=== PATIENT | female | born 1965 | race Caucasian/White ===

== ENCOUNTER 2018-02-18 07:23 | Inpatient (IN) ==
[2018-02-18] MEDS ORDERED: ONDANSETRON 4 MG/2 ML VIAL IV STA (07:42)
[2018-02-18] MEDS ORDERED: SODIUM CHLORIDE 0.9% 1,000 ML IV STA ×2 (07:42→09:12)
[2018-02-18] MEDS ORDERED: ACETAMINOPHEN 500 MG TABLET PO STA (07:57)
[2018-02-18] MEDS ORDERED: LOPERAMIDE 2 MG CAPSULE PO STA (07:57)
[2018-02-18 08:07] LABS: Basophils # 0.1 10*3/uL (0.0-0.2); Basophils % 0.4 % (0.0-0.8); Hematocrit 45.8 VOL% (35.7-47.0); Hemoglobin 15.2 GM/DL (12.0-16.0); Immature Granulocytes % 0.7 %; Immature Granulocytes Absolute 0.13 #; Lymphocytes # 0.8 10*3/uL (1.4-4.0); Lymphocytes % 4.2 % (21.3-54.2); Mean Corpuscular HGB Conc 33.2 GM/DL (32-36); Mean Corpuscular Hemoglobin 32 PG (27-34); Mean Corpuscular Volume 95.4 FL (87-102); Mean Platelet Volume 10.1 FL (9.6-12.0); Monocytes # 1.5 10*3/uL (0.11-0.8); Neutrophils # 16.4 10*3/uL (1.4-7.4); Neutrophils % 86.7 % (38.7-73.9); Platelet Count 129 T/CUMM (130-400); Red Cell Distribution Width 13.3 % (9.3-17.3); White Blood Count 18.9 T/CUMM (4-12)
[2018-02-18 08:29] LABS: Band Neutrophils 9 % (0-10); Lymphocytes 2 % (20-55); Segmented Neutrophils 83 % (50-85); Total Cells Counted 100
[2018-02-18 08:30] LABS: Hypochromasia 1+; Platelet Estimate Normal
[2018-02-18 08:32] LABS: Bilirubin,Total 0.9 MG/DL (0.2-1.0); Calcium 8.8 MG/DL (8.5-10.1); Osmolality,Calculated 271.4 MOS/KG (273-304); Potassium 3.8 MMOL/L (3.5-5.1); Total Protein 7.4 G/DL (6.4-8.3)
[2018-02-18] MEDS ORDERED: ACETAMINOPHEN 160 MG/5 ML UDCUP ONE (08:32)
[2018-02-18] MEDS ORDERED: LOPERAMIDE 0.2 MG/ML 30 ML/BOTTLE PO STA (08:34)
[2018-02-18] MEDS ORDERED: ACETAMINOPHEN 325 MG/10.15 ML UDCUP PO STA (08:43)
[2018-02-18 09:23] LABS: Amorphous Crystals,Urine Occasional /HPF (Few); Apearance,Urine CLOUDY (Clear); Bacteria,Urine Moderate /HPF (Few); Bilirubin,Urine Negative (Negative); Blood, Urine Small mg/dL (Negative); Glucose,Urine (UA) Negative (Negative); Ketones,Urine 5 mg/dL (Negative); Mucus,Urine Occasional /LPF (Occasional); Nitrite,Urine Negative (Negative); Protein,Urine 100 MG/DL; Squamous Epithelial Cell,Urine Occasional /HPF (0-10); Urine Color Amber (Yellow); Urine Specific Gravity 1.018 (1.001-1.035); Urine Urobilinogen < 2.0 EU/DL (0.2-1.0)
[2018-02-18] MEDS ORDERED: ACETAMINOPHEN 500 MG TABLET PO PRN (11:10)
[2018-02-18] MEDS ORDERED: ONDANSETRON 4 MG/2 ML VIAL IV PRN (11:10)
[2018-02-18] MEDS ORDERED: ALBUTEROL 2.5 MG/3 ML NEB RESP TX PRN (11:10)
[2018-02-18] MEDS ORDERED: GLUCAGON 1 MG VIAL IM PRN (11:15)
[2018-02-18] MEDS ORDERED: DEXTROSE 50% 25 GM/50 ML VIAL IV PRN (11:15)
[2018-02-18] MEDS ORDERED: metroNIDAZOLE INJ 500 MG in PREMIX 1 EACH IV STA (11:17)
[2018-02-18] MEDS ORDERED: LEVOFLOXACIN INJ 500 MG in PREMIX 1 EACH IV STA (11:17)
[2018-02-18] MEDS ORDERED: ENOXAPARIN 40 MG/0.4 ML SYRINGE SUBCUT SCH (11:30)
[2018-02-18] MEDS: PANTOPRAZOLE 40 MG VIAL IV SCH (12:13)
[2018-02-18] MEDS: SODIUM CHLORIDE 0.9% 1,000 ML IV SCH ×2 (12:13→20:21)
[2018-02-18] MEDS ORDERED: LEVOFLOXACIN INJ 500 MG in PREMIX 1 EACH IV SCH (13:00)
[2018-02-18] MEDS: INSULIN LISPRO 100 UNIT/ML SUBCUT SCH ×4 (13:05→23:23)
[2018-02-18] MEDS ORDERED: VANCOMYCIN INJ 1,000 MG in SODIUM CHLORIDE 0.9% 250 ML IV STA (13:30)
[2018-02-18] MEDS: metroNIDAZOLE INJ 500 MG in PREMIX 1 EACH IV SCH ×3 (13:51→23:23)
[2018-02-18 14:34] LABS: Basophils # 0.1 10*3/uL (0.0-0.2); Basophils % 0.4 % (0.0-0.8); Hematocrit 36.6 VOL% (35.7-47.0); Immature Granulocytes % 0.4 %; Immature Granulocytes Absolute 0.05 #; Lymphocytes # 0.6 10*3/uL (1.4-4.0); Lymphocytes % 5.1 % (21.3-54.2); Mean Corpuscular HGB Conc 33.3 GM/DL (32-36); Mean Corpuscular Hemoglobin 32 PG (27-34); Mean Corpuscular Volume 96.1 FL (87-102); Monocytes % 8.7 % (1.7-12.7); Neutrophils # 10.2 10*3/uL (1.4-7.4); Neutrophils % 85.4 % (38.7-73.9); Platelet Count 116 T/CUMM (130-400); Red Cell Distribution Width 13.4 % (9.3-17.3)
[2018-02-18 15:10] LABS: Hemoglobin 12.2 GM/DL (12.0-16.0); Red Blood Count 3.81 MC/CUMM (3.8-5.5)
[2018-02-18 15:14] LABS: Band Neutrophils 10 % (0-10); Lymphocytes 11 % (20-55); Segmented Neutrophils 74 % (50-85); Total Cells Counted 100
[2018-02-19] MEDS: INSULIN LISPRO 100 UNIT/ML SUBCUT SCH ×6 (03:14→23:52)
[2018-02-19 03:44] LABS: Basophils % 0.6 % (0.0-0.8); Hematocrit 33.8 VOL% (35.7-47.0); Hemoglobin 11.3 GM/DL (12.0-16.0); Immature Granulocytes % 0.4 %; Immature Granulocytes Absolute 0.03 #; Lymphocytes # 0.4 10*3/uL (1.4-4.0); Lymphocytes % 6.3 % (21.3-54.2); Mean Corpuscular HGB Conc 33.4 GM/DL (32-36); Mean Corpuscular Hemoglobin 31 PG (27-34); Mean Corpuscular Volume 93.6 FL (87-102); Mean Platelet Volume 10.2 FL (9.6-12.0); Monocytes # 0.6 10*3/uL (0.11-0.8); Monocytes % 8.2 % (1.7-12.7); Neutrophils # 5.7 10*3/uL (1.4-7.4); Neutrophils % 84.5 % (38.7-73.9); Platelet Count 106 T/CUMM (130-400); Red Blood Count 3.61 MC/CUMM (3.8-5.5); Red Cell Distribution Width 13.3 % (9.3-17.3); White Blood Count 6.7 T/CUMM (4-12)
[2018-02-19 04:12] LABS: Albumin 2.2 G/DL (3.4-5.0); Bilirubin,Total 0.5 MG/DL (0.2-1.0); Calcium 7.8 MG/DL (8.5-10.1); Osmolality,Calculated 276.5 MOS/KG (273-304); Potassium 3.5 MMOL/L (3.5-5.1); Total Protein 5.4 G/DL (6.4-8.3)
[2018-02-19] MEDS: SODIUM CHLORIDE 0.9% 1,000 ML IV SCH ×2 (05:17→17:27)
[2018-02-19] MEDS: metroNIDAZOLE INJ 500 MG in PREMIX 1 EACH IV SCH ×4 (05:19→23:58)
[2018-02-19] MEDS: ASPIRIN CHEW 81 MG TABLET PO SCH (10:50)
[2018-02-19] MEDS: PANTOPRAZOLE 40 MG VIAL IV SCH (10:51)
[2018-02-19] MEDS ORDERED: LEVOFLOXACIN INJ 250 MG in PREMIX 1 EACH IV SCH (13:30)
[2018-02-19] MEDS ORDERED: VANCOMYCIN INJ 1,000 MG in SODIUM CHLORIDE 0.9% 250 ML IV SCH (14:30)
[2018-02-19] MEDS: ATORVASTATIN 10 MG TABLET PO SCH (21:07)
[2018-02-20] MEDS: SODIUM CHLORIDE 0.9% 1,000 ML IV SCH ×2 (00:22→07:00)
[2018-02-20 04:15] LABS: Basophils # 0.1 10*3/uL (0.0-0.2); Basophils % 0.7 % (0.0-0.8); Eosinophils % 0.6 % (0.00-10.9); Hematocrit 32.2 VOL% (35.7-47.0); Hemoglobin 10.8 GM/DL (12.0-16.0); Immature Granulocytes % 0.7 %; Immature Granulocytes Absolute 0.05 #; Lymphocytes # 0.7 10*3/uL (1.4-4.0); Lymphocytes % 9.9 % (21.3-54.2); Mean Corpuscular HGB Conc 33.5 GM/DL (32-36); Mean Corpuscular Hemoglobin 31 PG (27-34); Mean Corpuscular Volume 93.3 FL (87-102); Mean Platelet Volume 10.1 FL (9.6-12.0); Monocytes % 13.5 % (1.7-12.7); Neutrophils # 5.3 10*3/uL (1.4-7.4); Neutrophils % 74.6 % (38.7-73.9); Platelet Count 102 T/CUMM (130-400); Red Blood Count 3.45 MC/CUMM (3.8-5.5); Red Cell Distribution Width 13.2 % (9.3-17.3); White Blood Count 7.1 T/CUMM (4-12)
[2018-02-20 04:39] LABS: Calcium 7.3 MG/DL (8.5-10.1); Osmolality,Calculated 275.4 MOS/KG (273-304); Potassium 3.1 MMOL/L (3.5-5.1)
[2018-02-20 04:45] LABS: Anisocytosis 1+; Band Neutrophils 23 % (0-10); Lymphocytes 7 % (20-55); Macrocytosis 1+; Metamyelocytes 1 %; Ovalocytes Few; Platelet Estimate Decreased; Segmented Neutrophils 53 % (50-85); Total Cells Counted 100
[2018-02-20] MEDS: INSULIN LISPRO 100 UNIT/ML SUBCUT SCH ×5 (04:59→21:02)
[2018-02-20] MEDS: metroNIDAZOLE INJ 500 MG in PREMIX 1 EACH IV SCH (05:46)
[2018-02-20] MEDS ORDERED: POTASSIUM CHLORIDE 20 MEQ/15 ML UDCUP PO ONE (08:26)
[2018-02-20] MEDS: ASPIRIN CHEW 81 MG TABLET PO SCH (09:00)
[2018-02-20] MEDS: PANTOPRAZOLE 40 MG VIAL IV SCH (11:00)
[2018-02-20] MEDS: NYSTATIN CREAM 15 GM TUBE TOP SCH ×2 (15:35→21:02)
[2018-02-20] MEDS: ATORVASTATIN 10 MG TABLET PO SCH (21:02)
[2018-02-20] MEDS: CIPROFLOXACIN 100 MG/ML 100 ML/BOTTLE PO SCH (21:02)
[2018-02-21] MEDS: SODIUM CHLORIDE 0.9% 1,000 ML IV SCH ×4 (00:15→16:35)
[2018-02-21] MEDS: INSULIN LISPRO 100 UNIT/ML SUBCUT SCH ×6 (01:04→20:33)
[2018-02-21 05:22] LABS: Basophils # 0.1 10*3/uL (0.0-0.2); Basophils % 1.2 % (0.0-0.8); Eosinophils # 0.1 10*3/uL (0.0-0.87); Eosinophils % 1.6 % (0.00-10.9); Hematocrit 34.2 VOL% (35.7-47.0); Hemoglobin 11.4 GM/DL (12.0-16.0); Immature Granulocytes Absolute 0.07 #; Lymphocytes # 0.7 10*3/uL (1.4-4.0); Mean Corpuscular HGB Conc 33.3 GM/DL (32-36); Mean Corpuscular Hemoglobin 31 PG (27-34); Mean Corpuscular Volume 92.9 FL (87-102); Mean Platelet Volume 10.4 FL (9.6-12.0); Monocytes # 0.9 10*3/uL (0.11-0.8); Neutrophils # 4.9 10*3/uL (1.4-7.4); Neutrophils % 73.2 % (38.7-73.9); Platelet Count 136 T/CUMM (130-400); Red Blood Count 3.68 MC/CUMM (3.8-5.5); Red Cell Distribution Width 13.1 % (9.3-17.3); White Blood Count 6.7 T/CUMM (4-12)
[2018-02-21 05:55] LABS: Calcium 7.5 MG/DL (8.5-10.1); Osmolality,Calculated 280.1 MOS/KG (273-304); Potassium 3.4 MMOL/L (3.5-5.1)
[2018-02-21] MEDS: ASPIRIN CHEW 81 MG TABLET PO SCH (08:56)
[2018-02-21] MEDS: CIPROFLOXACIN 100 MG/ML 100 ML/BOTTLE PO SCH ×2 (08:56→20:33)
[2018-02-21] MEDS: PANTOPRAZOLE 40 MG VIAL IV SCH (11:08)
[2018-02-21] MEDS ORDERED: POTASSIUM CHLORIDE 20 MEQ TABLET PO ONE (12:05)
[2018-02-21] MEDS: NYSTATIN CREAM 15 GM TUBE TOP SCH ×2 (12:35→20:34)
[2018-02-21] MEDS ORDERED: POTASSIUM CHLORIDE 20 MEQ/15 ML UDCUP PO ONE (12:41)
[2018-02-21] MEDS: ATORVASTATIN 10 MG TABLET PO SCH (20:33)
[2018-02-22] MEDS: SODIUM CHLORIDE 0.9% 1,000 ML IV SCH (02:28)
[2018-02-22 05:13] LABS: Basophils # 0.1 10*3/uL (0.0-0.2); Basophils % 1.3 % (0.0-0.8); Eosinophils # 0.2 10*3/uL (0.0-0.87); Eosinophils % 2.4 % (0.00-10.9); Hematocrit 33.1 VOL% (35.7-47.0); Hemoglobin 11.3 GM/DL (12.0-16.0); Immature Granulocytes % 2.1 %; Immature Granulocytes Absolute 0.13 #; Lymphocytes # 0.8 10*3/uL (1.4-4.0); Lymphocytes % 13.1 % (21.3-54.2); Mean Corpuscular HGB Conc 34.1 GM/DL (32-36); Mean Corpuscular Hemoglobin 31 PG (27-34); Mean Corpuscular Volume 90.4 FL (87-102); Mean Platelet Volume 10.3 FL (9.6-12.0); Monocytes # 0.9 10*3/uL (0.11-0.8); Monocytes % 13.9 % (1.7-12.7); NRBC # 0.02 10*3/uL; Neutrophils # 4.2 10*3/uL (1.4-7.4); Neutrophils % 67.2 % (38.7-73.9); Platelet Count 155 T/CUMM (130-400); Red Blood Count 3.66 MC/CUMM (3.8-5.5); Red Cell Distribution Width 13.2 % (9.3-17.3); White Blood Count 6.2 T/CUMM (4-12)
[2018-02-22 05:25] LABS: Calcium 7.3 MG/DL (8.5-10.1); Osmolality,Calculated 280.1 MOS/KG (273-304); Potassium 3.1 MMOL/L (3.5-5.1)
[2018-02-22] MEDS ORDERED: POTASSIUM CHLORIDE 20 MEQ/15 ML UDCUP PO ONE ×2 (05:45→10:10)
[2018-02-22] MEDS: ASPIRIN CHEW 81 MG TABLET PO SCH (08:15)
[2018-02-22] MEDS: CIPROFLOXACIN 100 MG/ML 100 ML/BOTTLE PO SCH (08:16)
[2018-02-22] MEDS: INSULIN LISPRO 100 UNIT/ML SUBCUT SCH ×2 (08:16→12:04)
[2018-02-22] MEDS: NYSTATIN CREAM 15 GM TUBE TOP SCH (08:17)
[2018-02-22 08:21] VITALS: BP 126/72
[2018-02-22] MEDS ORDERED: POTASSIUM CHLORIDE 20 MEQ TABLET PO ONE (09:51)
[2018-02-22] MEDS: PANTOPRAZOLE 40 MG VIAL IV SCH (10:38)
== END 2018-02-22 12:27 | disposition home or self-care (01) | DRG 871 ==
LOC: N.EDINP 07:23 → N.ED 07:23 → N.ICU 21:29 → SUATTDRO 02-19 15:26
PROVIDERS: ADMIT Internal Medicine; ATTEND Internal Medicine